=== PATIENT | male | born 1945 | race Caucasian/White ===

== ENCOUNTER 2016-07-28 08:39 | Day surgery (SDC) | payer MEDICARE, BC ==
--- NOTE | ~2016-07-28 | EGD ---
EGD REPORT [facility] [address] [place]. [address] NAME: RAFAL LARKIN : [birth year] STATUS : REG [facility]#: [id number] AGE: 71 ADM/REG DATE : 07/28/16 MR#: [id number] REPORT SERV DATE: 07/28/16 DICTATED BY: HIPOLITO STEWART DATE: 07/28/16 REPORT STATUS : Draft TRANSCRIBED BY: [employer] DATE: 07/28/16 Endoscopy Center Patient Name: Rafal Larkin Date of : 1945 Attending MD: HIPOLITO STEWART MD Procedure Date No Time: 07/28/2016 Procedure: Colonoscopy Indications: Abdominal pain in the right lower quadrant, Rectal bleeding, Constipation Referring MD: JADE QUINTANILLA MD Medicines: as per anesthesia Complications: No immediate complications. Procedure: Pre-Anesthesia Assessment: - ASA Grade Assessment: III - A patient with severe systemic disease. After I obtained informed consent, the scope was passed under direct vision. Throughout the procedure, the patient's blood pressure, pulse, and oxygen saturations were monitored continuously. The PCF [id number] was introduced through the anus and advanced to the cecum, identified by appendiceal orifice and ileocecal valve. The colonoscopy was performed without difficulty. The patient tolerated the procedure. The quality of the bowel preparation was fair. Findings: The perianal and digital rectal examinations were normal. A sessile polyp was found in the transverse colon. The polyp was 4 mm in size. The polyp was removed with a cold biopsy forceps. Resection and retrieval were complete. A few small and large-mouthed diverticula were found in the sigmoid colon, in the descending colon and in the transverse colon. Internal hemorrhoids were found during endoscopy and were mild. Impression: - One 4 mm polyp in the transverse colon. Resected and retrieved. - Diverticulosis in the sigmoid colon, in the descending colon and in the transverse colon. - Internal hemorrhoids. Recommendation: - Await pathology results. - Repeat colonoscopy for surveillance based on pathology results. Procedure Code(s): --- Professional --- EGD REPORT [address] [address] NAME: RAFAL LARKIN : [birth year] STATUS : REG [facility]#: [id number] AGE: 71 ADM/REG DATE : 07/28/16 MR#: [id number] REPORT SERV DATE: 07/28/16 DICTATED BY: HIPOLITO STEWART DATE: 07/28/16 REPORT STATUS : Draft TRANSCRIBED BY: [employer] DATE: 07/28/16 52911, Colonoscopy, flexible, proximal to splenic flexure; with biopsy, single or multiple Diagnosis Code(s): --- Professional --- D12.3, Benign neoplasm of transverse colon K64.8, Other hemorrhoids K57.30, Diverticulosis of large intestine without perforation or abscess without bleeding R10.31, Right lower quadrant pain K62.5, Hemorrhage of anus and rectum K59.00, Constipation, unspecified CPT copyright 2013 [employer]. All rights reserved. The codes documented in this report are preliminary and upon vending supervisor review may be revised to meet current compliance requirements. HIPOLITO STEWART MD 07/28/2016 10:57 AM This report has been signed electronically. Number of Addenda: 0 Note Initiated On: 07/28/2016 10:06 AM Scope Withdrawal Time 0 hours 12 minutes 34 seconds [address] [place] [address]
--- NOTE | ~2016-07-28 | EGD ---
EGD REPORT [facility] [address] [address] NAME: RAFAL LARKIN : [birth year] STATUS : REG [facility]#: [id number] AGE: 71 ADM/REG DATE : 07/28/16 MR#: [id number] REPORT SERV DATE: 07/28/16 DICTATED BY: HIPOLITO STEWART DATE: 07/28/16 REPORT STATUS : Draft [facility]ANSCRIBED BY: [facility] DATE: 07/28/16 [facility] Patient Name: Rafal Larkin Date of : 1945 Attending MD: HIPOLITO STEWART MD Procedure Date No Time: 07/28/2016 Procedure: Upper GI endoscopy Indications: Dysphagia Referring MD: JADE QUINTANILLA MD Medicines: as per anesthesia Complications: No immediate complications. Procedure: Pre-Anesthesia Assessment: - ASA Grade Assessment: III - A patient with severe systemic disease. After obtaining informed consent, the endoscope was passed under direct vision. Throughout the procedure, the patient's blood pressure, pulse, and oxygen saturations were monitored continuously. The GIF H190 [id number] was introduced through the mouth, and advanced to the third part of duodenum. The upper GI endoscopy was accomplished without difficulty. The patient tolerated the procedure. Findings: The examined esophagus was normal. The scope was withdrawn. Dilation was performed with a Tejeda dilator with no resistance at 48 Fr. The entire examined stomach was normal. The cardia and gastric fundus were normal on retroflexion. The examined duodenum was normal. Impression: - Normal esophagus. Dilated. - Normal stomach. - Normal examined duodenum. Recommendation: - Continue present medications. Procedure Code(s): --- Professional --- 29120, Esophagogastroduodenoscopy, flexible, transoral; diagnostic, including collection of specimen(s) by brushing or washing, when performed (separate procedure) 90884, Dilation of esophagus, by unguided sound or bougie, single or multiple passes Diagnosis Code(s): --- Professional --- R13.10, Dysphagia, unspecified EGD REPORT [facility] [address] [address] NAME: RAFAL LARKIN : [birth year] STATUS : [place] [facility] [place]#: [id number] AGE: 71 ADM/REG DATE : 07/28/16 MR#: [id number] REPORT SERV DATE: 07/28/16 DICTATED BY: HIPOLITO STEWART. DATE: 07/28/16 REPORT STATUS : Draft TRANSCRIBED BY: [email or web address] DATE: 07/28/16 CPT copyright 2013 [employer]. All rights reserved. The codes documented in this report are preliminary and upon escrow secretary review may be revised to meet current compliance requirements. HIPOLITO STEWART MD 07/28/2016 10:31 AM This report has been signed electronically. Number of Addenda: 0 Note Initiated On: 07/28/2016 10:14 AM Scope Withdrawal Time 0 hours 0 minutes 0 seconds [address] [address]
[~2016-07-28 08:39] MED LIST: AMIT25 PO; ASABAYER PO; FLOMAX4 PO; LIOR10 PO; LIPITOR40 PO; MELATONIN5 M1 PO; MIRAPEX ER4.5 MG PO; NEUR100 PO; NORCO1 TA1 PO; PRILO PO; PRIN10 PO; Percocet 10/325 Ta PO; SIN-CR PO; T PO; TEARS PURE OPH; TOPAMAX100 PO; TOPAMAX25 PO; V2 PO; ZOL50 PO; ZONEGRAN PO
== END 2016-07-28 23:59 | disposition home or self-care (01) ==
LOC: DMU 08:39
PROVIDERS: Internal Medicine Gastroenterology
PROC: 0DJ08ZZ Inspection of Upper Intestinal Tract, Via Natural or Artificial Opening Endoscopic (ICD-10-PCS; principal; 2016-07-28 10:00)
PROC: 0D757ZZ Dilation of Esophagus, Via Natural or Artificial Opening (ICD-10-PCS; 2016-07-28 10:00)
PROC: 0DBL8ZX Excision of Transverse Colon, Via Natural or Artificial Opening Endoscopic, Diagnostic (ICD-10-PCS; 2016-07-28 10:00)
DX: K63.5 Polyp of colon (principal); K64.8 Other hemorrhoids; K57.30 Diverticulosis of large intestine without perforation or abscess without bleeding; K59.00 Constipation, unspecified; G20 Parkinson's disease; I71.4 Abdominal aortic aneurysm, without rupture; I10 Essential (primary) hypertension; Z88.8 Allergy status to other drugs, medicaments and biological substances; Z79.899 Other long term (current) drug therapy; Z98.890 Other specified postprocedural states; Z98.41 Cataract extraction status, right eye; Z98.42 Cataract extraction status, left eye; Z98.52 Vasectomy status
CPT/HCPCS: 88305

== ENCOUNTER 2016-09-05 08:09 | Inpatient (IN) | payer MEDICARE, BC ==
--- NOTE | ~2016-09-05 | OP ---
Record Of Operation [facility] [address] [place]. [address] NAME: BETHANIE GALVEZ : [birth year] STATUS : ADM IN PAT#: [id number] AGE: 71 ADM/REG DATE : 09/05/16 MR#: [id number] REPORT SERV DATE: 09/08/16 DICTATED BY: JULIETA ROLLINS II DATE: 09/08/16 REPORT STATUS : Draft TRANSCRIBED BY: MODShameka DATE: 09/08/16 DATE OF PROCEDURE: 09/05/2016 PREOPERATIVE DIAGNOSES: 1. L3-L4 left foraminal herniated nucleus pulposus with left quadriceps weakness. 2. L4-5 facet instability status post laminectomy with recurrent stenosis. POSTOPERATIVE DIAGNOSES: 1. L3-L4 left foraminal herniated nucleus pulposus with left quadriceps weakness. 2. L4-5 facet instability status post laminectomy with recurrent stenosis. PROCEDURES: 1. Lumbar laminectomy and facetectomy, L3-L4. 2. Revision laminectomy and facetectomy, L4-L5. 3. Interbody arthrodesis, L3-4, L4-5. 4. Application of prosthetic device, L3-4, L4-5. 5. Posterolateral arthrodesis, L3-4, L4-5. 6. Posterior segmental instrumentation, L3-4, L4-5. 7. Use of local autograft, allograft substitute, and bone morphogenic protein. 8. Use of the microscope and stereotactic spinal imaging. FLUIDS: 2 L lactated Ringer's. ESTIMATED BLOOD LOSS: 150 mL. DRAINS: One drain. COMPLICATIONS: None. ANTIBIOTIC: Preoperatively. IMPLANTS: Alphatec. PREOPERATIVE HISTORY: This is a friendly hardworking 71-year-old gentleman, who did well following his laminectomy. It did decrease his right leg pain. He has now been having a more so complaints of left lower extremity pain with weakness especially with going upstairs. He feels that the leg is giving way. He was having also some recurrence of his right lower extremity pain consistent with radiculopathy. His facet overall did appear to have significant gapping consistent with his degenerative process and instability of the facet itself. We discussed the pros and cons of continuing nonoperative care versus surgery. The pain was more so now in his left lateral thigh and anterior thigh consistent with his foraminal HNP and L3 nerve root compression. After I discussed with him and his family that this would not easily be assisted by a decompression alone. I felt that a fairly aggressive 75% to 85% facet resection would be required. DESCRIPTION OF PROCEDURE: After informed consent was obtained, the patient was brought to Record Of Operation [address] [place]. [address] NAME: BETHANIE GALVEZ : [birth year] STATUS : ADM IN PAT#: [id number] AGE: 71 ADM/REG DATE : 09/05/16 MR#: [id number] REPORT SERV DATE: 09/08/16 DICTATED BY: JULIETA ROLLINS II DATE: 09/08/16 REPORT STATUS : Draft TRANSCRIBED BY: MOD[employer]ka DATE: 09/08/16 the operating room in his request and general anesthesia was achieved. He was placed in the prone position. The back was prepped and draped in a sterile fashion. The stereotactic spinal pin was placed into the right iliac crest, and the intraoperative CT scan was completed. Stereotactic guidance was then used throughout the case. The incision was made on the left at L3-4 and L4-5, and the minimally invasive quadrant retractor was placed. The transverse processes were dissected upon at L3, L4, and L5. The facet capsules were now removed at L3-4 and L4-5. The microscope was now brought into place, and under microscopic visualization, the facetectomy was now initiated at L3-4. The pars was now removed, and a wiilxyw-qw-apxtmoh decompression was achieved. There was a mild to-moderate stenosis of the lateral recess. The L4 nerve root was well decompressed at this particular level. The L3 nerve root was evaluated. There was a large foraminal herniated nucleus pulposus with some osteophyte associated with it. The L3 nerve root was now well-decompressed with removal of the fragment of disk. The area was now irrigated. Next, the interbody arthrodesis was initiated with diskectomy and endplate preparation. The jeanette and the curettes and the pituitary rongeurs were used extensively to remove disk and cartilage from the endplates. The punctate bleeding bone was identified on both endplates. The area was now irrigated followed by placement of the prosthetic device into the anterior column. This was a prosthetic device composed of PEEK. The additionally local autograft, allograft substitute, and bone morphogenic protein were placed along side the prosthetic device in the anterior column. Next, the L4-L5 level was addressed in a similar manner. The endplates were prepared. The pituitary rongeurs, Kerrison rongeurs, and the curettes were used. Once again, the endplates were prepared, and the punctate bleeding bone was identified on both endplates. Please also note, the L4-5 level was treated with a revision laminectomy and facetectomy. The central canal did have some scarring about the dura, but not severe. There was significant compression upon the L5 nerve root in the lateral recess, and this was now alleviated with significant facet removal. The pars was now removed to decompress the L4 nerve root in the foraminal zone. There was some impingement upon it from the superior articular facet. At this point, again the disk space had been prepared now, and the prosthetic device was chosen and placed at L4-L5. This contained allograft substitute and bone morphogenic protein. Local autograft was also placed. Next, the stereotactic guidance system was now used for placement of the pedicle screws. On the right side, we then placed percutaneous screws into L3 and L5. A repeat CT scan confirmed acceptable placement of the implants. The rods were then final tightened. On the left side, we then decorticated the transverse process at L3, L4, and L5. The local Record Of Operation [facility] [place] [address] [place]. [address] NAME: BETHANIE GALVEZ : [birth year] STATUS : ADM IN PAT#: [id number] AGE: 71 ADM/REG DATE : 09/05/16 MR#: [id number] REPORT SERV DATE: 09/08/16 DICTATED BY: JULIETA ROLLINS II DATE: 09/08/16 REPORT STATUS : Draft TRANSCRIBED BY: RAMONA DATE: 09/08/16 autograft, allograft substitute, and bone morphogenic protein were then applied to the decorticated surfaces on the left. A deep drain was placed followed by standard closure, and the patient was then extubated, and transferred to the PACU in stable condition. CADEN/RAMONA Julieta Rollins II, M.D. / [id number] CC: Tejinder Washington II, M.D.
--- NOTE | ~2016-09-05 | DS ---
Discharge Summary [facility] [address] [facility] [place]. [address] NAME: BETHANIE GALVEZ : [birth year] STATUS : DIS IN PAT#: [id number] AGE: 71 ADM/REG DATE : 09/05/16 MR#: [id number] REPORT SERV DATE: 09/22/16 DICTATED BY: JULIETA ROLLINS II DATE: 09/22/16 REPORT STATUS : Draft TRANSCRIBED BY: RAMONA DATE: 09/22/16 Data Collection from hospitalization DISCHARGE DIAGNOSES: 1. L3-L4 left foraminal herniated nucleus pulposus with left quadriceps weakness. 2. L4-5 facet instability, status post laminectomy with recurrent stenosis. 3. Hypertension. 4. Small abdominal aortic aneurysm. 5. Hypercholesterolemia. 6. Gastroesophageal reflux disease. 7. Chronic pain. CONSULTATIONS: None. PROCEDURES PERFORMED: Lumbar laminectomy and facetectomy, L3-L4; revision laminectomy and facetectomy L4-L5; interbody arthrodesis L3-4, L4-5; application of prosthetic device, L3-4, L4-5; posterolateral arthrodesis, L3-L4, L4-5; posterior segmental instrumentation, L3-4, L4 5; use of local autograft, allograft substitute, and bone morphogenic protein; use of microscope and stereotactic spinal imaging on 09/05/2016. PATHOLOGY: Spine, lumbar bone, and tissue-fibrocartilage consistent with intervertebral disk, benign bone fragments with degenerative changes. DISCHARGE MEDICATIONS: Elavil 25 mg at bedtime, Artificial Tears 1 mL as needed Lipitor 40 mg at bedtime, Lioresal 10 mg at bedtime, Sinemet CR half tablet twice a day as instructed, Neurontin 100 mg at bedtime, Prinivil 10 mg at bedtime, melatonin 10 mg at bedtime, Prilosec 20 mg every morning, Mirapex ER 4.5 mg every evening, Zoloft 50 mg at bedtime, Flomax 0.4 mg at bedtime, Topamax 100 mg at bedtime, Percocet 10/325 one to two tablets every four hours as needed, and Zonegran 100 mg at bedtime. CONDITION AT DISCHARGE: Stable. DISPOSITION: The patient was discharged home on a regular diet with activities as instructed. He would follow up with me on 10/04/2016. HOSPITAL COURSE: This is a 71-year-old man, who had complained of lumbar spine related symptoms. The symptoms were located in his low back and radiated into the bilateral hips, left greater than right. He had burning in the right leg and pain and weakness in the left hip. The patient has L3-L4 left foraminal herniated nucleus pulposus, with left quadriceps weakness, and L4-5 facet instability, status post laminectomy with recurrent stenosis. Treatment options were discussed and it was elected to proceed with surgical intervention. He was admitted at this time for further evaluation and treatment. Upon admission, he was taken to the operating room where he underwent the above-mentioned procedure. He tolerated this well. There were no complications. On postop day #1, his lower extremity radiculopathy was improving. He was eager to get moving. We encouraged him to mobilize. On 09/07/2016, he was wanting to go home. He said he was sleeping well. He felt like his pain medications were too strong. Medications were adjusted. Discharge Discharge Summary [address] [address] NAME: BETHANIE GALVEZ : [birth year] STATUS : DIS IN [facility]#: [id number] AGE: 71 ADM/REG DATE : 09/05/16 MR#: [id number] REPORT SERV DATE: 09/22/16 DICTATED BY: JULIETA ROLLINS II DATE: 09/22/16 REPORT STATUS : Draft TRANSCRIBED BY: RAMONA DATE: 09/22/16 planning was performed. He was evaluated by Physical Therapy. On 09/09/2016, he continued to progress. Discharge instructions were given. Due to his improved and stable condition, he was discharged home with the above-stated instructions. Information collected by: Brisa Lewis I submit the above information as my discharge summary. ELIESER/RAMONA Julieta Rollins II, M.D. / [id number] CC: Tejinder Washington II, M.D.
[2016-09-05 09:40] LABS: BASOPHILS 0.3 %; BASOPHILS ABSOLUTE 0.02 10/3/uL (0.0-0.16); EOSINOPHILS 0.9 %; EOSINOPHILS ABSOLUTE 0.06 10/3/uL (0.0-0.53); HEMATOCRIT 43.1 % (40.0-51.0); HEMOGLOBIN 13.9 g/dL (13.6-17.8); IMMATURE GRANULOCYTES 0.3 %; IMMATURE GRANULOCYTES ABSOLUTE 0.02 10/3/uL (0.0-0.11); LYMPHOCYTES 39.3 %; LYMPHOCYTES ABSOLUTE 2.64 10/3/uL (0.67-4.30); MEAN CORPUS HGB CONC 32.3 g/dL (32.0-36.0); MEAN CORPUSCULAR HEMOGLOB 27.8 pg (26.0-34.0); MEAN CORPUSCULAR VOLUME 86.2 fL (80-100); MEAN PLATELET VOLUME 10.5 fL (9.2-13.0); MONOCYTES 8.2 %; MONOCYTES ABSOLUTE 0.55 10/3/uL (0.21-1.20); NEUTROPHILS ABSOLUTE 3.43 10/3/uL (2.02-8.40); PLATELET COUNT 190 10/3/uL (150-400); RBC DISTRIBUTION WIDTH 13.9 % (12.0-16.0); WHITE BLOOD CELLS 6.7 10/3/uL (4.5-10.5)
[2016-09-05 09:41] LABS: MANUAL DIFF NO %
[2016-09-05 09:49] LABS: BUN (BLOOD UREA NITROGEN) 16 MG/DL (6-23); CALCIUM, SERUM 8.5 MG/DL (8.5-10.4); CHLORIDE, SERUM 115 MMOL/L (96-112); CO2 (CARBON DIOXIDE) 23 MMOL/L (24-34); CREATININE 0.95 MG/DL (0.70-1.30); GFR AFRICAN AMERICAN 94 ML/MIN (>=60); GFR NON AFRICAN AMERICAN 81 ML/MIN (>=60); GLUCOSE, SERUM 107 MG/DL (60-99); POTASSIUM, SERUM 3.8 MMOL/L (3.5-5.3); SODIUM, SERUM 145 MMOL/L (135-148)
== END 2016-09-09 12:55 | disposition home or self-care (01) | DRG 460 ==
LOC: SDC/OF 08:09 → 3SO 17:03
PROVIDERS: Orthopaedic Surgery
PROC: 0SG10AJ Fusion of 2 or more Lumbar Vertebral Joints with Interbody Fusion Device, Posterior Approach, Anterior Column, Open Approach (ICD-10-PCS; principal; 2016-09-05 10:45)
PROC: 0ST20ZZ Resection of Lumbar Vertebral Disc, Open Approach (ICD-10-PCS; 2016-09-05 10:45)
DX: M51.16 Intervertebral disc disorders with radiculopathy, lumbar region (principal); I10 Essential (primary) hypertension; M48.06 Spinal stenosis, lumbar region; I71.4 Abdominal aortic aneurysm, without rupture; K21.9 Gastro-esophageal reflux disease without esophagitis; G89.29 Other chronic pain; M53.2X6 Spinal instabilities, lumbar region; Z88.8 Allergy status to other drugs, medicaments and biological substances; Z79.82 Long term (current) use of aspirin; Z79.891 Long term (current) use of opiate analgesic; Z79.899 Other long term (current) drug therapy
CPT/HCPCS: 80048; 82962; 85025; 88304; 88311; 93005; 97116-GP; 97161-GP; 97530-GP; A9270-GY; C1713; J0690; J1030; J2250; J2405; J2710; J3010